=== PATIENT | female | born 2005 | race Caucasian/White ===

== ENCOUNTER 2024-12-17 04:23 | Observation (INO) | payer BC, SELFPAY ==
[2024-12-16 20:09] VITALS: BP 127/81
[2024-12-16 20:55] LABS: COVID-19 Antigen Negative (Negative)
[2024-12-16 21:03] LABS: Hematocrit 42.0 % (37.0-47.0); Hemoglobin 14.5 g/dL (12.0-16.0); Mean Corp Hgb Conc. 34.5 g/dL (33.0-37.0); Mean Corpuscular Volume 88.2 fL (81.0-99.0); Nucleated Red Blood Cells % 0 %; Platelet Count 261 10^3/uL (130-400); Red Cell Dist. Width 12.4 % (11.5-14.5)
[2024-12-16 21:15] LABS: HCG, Serum Qualitative Screen Negative
[2024-12-16 21:21] LABS: ALT (SGPT) 14 U/L (0-35); AST (SGOT) 17 U/L (14-36); Albumin 5.3 g/dl (3.5-5.0); Alkaline Phosphatase 58 U/L (38-126); Blood Urea Nitrogen 12 mg/dl (7-17); Calcium 10.2 mg/dl (8.4-10.2); Carbon Dioxide 28 mmol/L (22-30); Chloride 99 mmol/L (98-107); Estimated Creatinine Clearance 104 ml/min; Glucose 97 mg/dl (70-99); Potassium 4.3 mmol/L (3.5-5.1); Sodium 135 mmol/L (135-145); Total Protein 8.3 g/dl (6.3-8.2); eGFR > 60.00
[2024-12-16 21:30] VITALS: BP 122/76
[2024-12-16 22:00] VITALS: BP 122/83
--- NOTE | 2024-12-16 23:05 | ED.GENMED ---
History of Present Illness
General
Chief Complaint: Fever
Source: patient and family
Time Seen by Provider: 12/16/24 22:45
History of Present Illness
History of Present Illness:
This patient is a 19-year-old female who states she finished her period on and then got concerned about so took a Plan B on Friday evening. She was asymptomatic on Friday and Friday but on Friday she developed vaginal bleeding
associated with episodes of lightheadedness and anorexia. On Friday she noted she felt fatigued and more lightheaded. Yesterday, the bleeding was still present and she just felt 'off' associated with a mild headache. This morning, she notes that
the bleeding has decreased. However, she describes a sore throat, headache, subjective fevers, chills, body aches, and fatigue. She denies abdominal pain, pelvic pain, vaginal pain, dysuria, urgency, frequency, flank pain, chest pain, shortness of
breath, cough, sore rhinorrhea, rash, or other complaints.
Past History
Past History
ED Past Medical History: None
ED Past Surgical History: None
Social History
Tobacco: Non-smoker
Alcohol: Occasional
Drug: None
Living: with family
Employment: Employed
Phy Exam
Physical Exam
Physical Exam:
GENERAL: Alert , in no apparent distress
EYE: pupils equal and reactive, no photophobia, EOMI
NECK: Supple, no significant adenopathy.
ENT: o/p clr, mmm, voice clear, no trismus, no drool, uvula midline, no exudate.
CARDIAC: Regular rate and rhythm .
LUNGS: Clear breath sounds bilaterally, no acute respiratory distress, no wheezes/rales/rhonchi
ABDOMEN: Soft, without focal tenderness, no r/g, no cvat
NEUROLOGICAL: Alert and oriented, no focal neuro deficits
SKIN: Warm and dry, skin intact.
MUSCULOSKELETAL: No edema, well perfused.
PSYCH: Normal and appropriate interaction.
Course
Orders/Labs/Results
Orders:
Orders
12/16/24 20:17
Test Result ONCE
12/16/24 20:20
COVID-19 Antigen Urgent
Source: Nasal Swab
Influenza A+B Rapid Molecular Urgent
ALONDRA Source: Nasal Swab
Specimen Description:
12/16/24 20:46
Complete Blood Count/With Diff Urgent
Comprehensive Metabolic Panel Urgent
HCG, Serum Qualitative Screen Urgent
Comment: Notify provider if positive test present
12/16/24 23:03
Urinalysis Reflex To Culture Urgent
Date Specimen was Collected: 12/17/24
Time Specimen was Collected: 00:30
0.9% Sodium Chloride 1000 ml [Nss] 1,000 ml IV BOLUS
12/16/24 23:13
Lactic Acid Urgent
Blood Culture Q30M
ALONDRA Source: Blood/Venous
Specimen Description:
Blood Culture Q30M
ALONDRA Source: Blood/Venous
Specimen Description:
12/17/24 00:31
Urine Microscopic Reflex Cult Urgent
Urine Culture Urgent
ALONDRA Source: U
Specimen Description:
Date Specimen was Collected: 12/17/24
Time Specimen was Collected: 00:30
12/17/24 00:45
Lyme Progressive Urgent
12/17/24 00:50
CR Chest - 2 Views Urgent
Comment:
Reason For Exam: fever
12/17/24 01:16
Acetaminophen [Tylenol] 1,000 mg PO NOW STA
Abnormal Lab Results
12/16/24 12/16/24 12/17/24
20:46 23:13 00:31
WBC 22.1 H 10^3/uL
(4.8-10.8)
Abs Immat Gran (auto) 0.1 H 10^3/uL
(0-0.05)
Absolute Neuts (auto) 18.7 H 10^3/uL
(1.4-6.5)
Absolute Monos (auto) 1.4 H 10^3/uL
(0.1-0.6)
Neutrophils % 84.5 H %
(42.2-75.2)
Lymphocytes % 8.4 L %
(20.5-51.1)
Lactic Acid 0.6 L mmol/L
(0.7-2.0)
Total Bilirubin 1.6 H mg/dl
(0.2-1.3)
Total Protein 8.3 H g/dl
(6.3-8.2)
Albumin 5.3 H g/dl
(3.5-5.0)
Ur Occult Blood Reflex 4+ A
(Negative)
Leukocyte Esterase Rfl 1+ A
(Negative)
Urine Albumin (Reflex) 1+ A
(Neg - Trace)
12/16/24 20:46
12/16/24 20:46
Vital Signs
Initial and Last Documented VS:
Initial Vital Signs
Temp Pulse Resp BP Pulse Ox
98.7 F 125 22 127/81 99
12/16/24 20:09 12/16/24 20:09 12/16/24 20:09 12/16/24 20:09 12/16/24 20:09
Last Documented Vital Signs
Temp Pulse Resp BP Pulse Ox
98.7 F 103 25 122/83 98
12/16/24 20:09 12/17/24 01:00 12/17/24 01:00 12/16/24 22:00 12/16/24 23:07
*Pulse Oximetry
SaO2: 98
Oxygen Mode of Delivery: Room air
Update Note
Update Note:
Patient presents to the Emergency Department with ___fatigue, intermittent fever, sore throat, dizziness, vaginal bleeding, etc.
Number and Complexity of Problems Addressed at the Encounter
� Chronic conditions affecting care:
� Acute Exacerbation and/or Progression of Chronic Illness:
� Differential Diagnosis includes: But not limited to anemia, COVID, flu, nonspecific viral illness, meningitis, etc. etc.
Amount and/or Complexity of Data to be Reviewed and Analyzed
� I performed an independent evaluation of and my interpretation is:
EKG:
CT:
Xrays:cxr nad
Laboratory Studies: Lactic acid not elevated, white blood cell count elevated at 22,000 otherwise labs generally unremarkable, UA unremarkable
Other:
� Review of other/old records reveals:
� Clinical information was obtained by an independent historian: Mother and sister who are at bedside
� Prescriptions/Medications Considered but not given:
� Further testing considered but not performed:
Risk of Complications and/or Morbidity or Mortality of Patient Management
� Social determinants of health affecting care:
� Discussion with other providers (PCP, Hospitalists, Consultants, etc):
� Escalation of care including admission/observation vs risk of discharge considered: Highly doubt meningitis/encephalitis given lack of photophobia, nuchal rigidity, rash, Kernig Brudzinski, or other suspicious findings.
1:08 AM several reassessments here, patient is received IV fluids and has been sleeping on and off. Of note, the sore throat that she describes is minimal, and is not limiting her ability to eat or drink, no change in voice, no drool, etc. Normal
posterior pharyngeal exam. Nods yes and no easily. Concern regarding patient's persistent yet mild tachycardia and markedly elevated white blood cell count, no specific infection noted on exam here, chest x-ray pending, blood culture sent.
Recommend observation overnight, continued IV fluids, and reassessment. Discussed with patient and mother both agreeable to plan. Dr. Brower made aware
ED Attending Note
-
Portions of this chart may have been created with voice recognition software.� Occasional wrong word or��sound alike� substitutions may have occurred due to the inherent limitations of voice recognition software.
Discharge Plan
Departure
Patient Disposition: Admit
Date of Disposition: 12/17/24
Time of Disposition: 01:09
Presentation/result/management discussed w/ accepting MD/DO: Hospitalist
Discharge Problem:
Fever
Prescriptions:
No Action
No Current Medications
Referrals:
UNKNOWN - PT DOES,NOT KNOW [Family Provider]
Interventions
Interventions:
*Risk Screen - Suicide Last Done: 12/16/24 20:09
ED- Neurological Assessment Last Done: 12/16/24 22:37
ED-Skin Assessment Last Done: 12/16/24 22:37
Discharge Date and Time
Print Language: CUBAN
[2024-12-16] MEDS: NSS 1000 IV (23:15)
[2024-12-17 00:46] LABS: Urine Character Clear (Clear)
[2024-12-17 00:54] LABS: Urine Squamous Cell 0-2 /LPF (Few)
[2024-12-17 00:55] LABS: Urine Red Blood Cell 0-2 /HPF (0-2); Urine White Cell 0-2 /HPF (0-5)
[2024-12-17] MEDS: TYLENOL 1000 MG PO (01:37)
--- NOTE | 2024-12-17 03:48 | HPS.HSE ---
Family Physician
-
Family Physician: NOT KNOW UNKNOWN - PT DOES
Chief Complaint
-
Fever
History of Present Illness
This is a 19-year-old female with no known significant past medical history presenting to the emergency department with a fever.
According to mother, patient took emergency contraceptive (Levonorgestrel) about 2 weeks ago. Over the last 2 days she then developed constellation of symptoms including headache, sore throat, mild rhinorrhea, generalized aches, myalgias weakness
and a persistent fever with diaphoresis. She denied having any chest pain, shortness of breath, cough nausea vomiting or diarrhea. She denies any rash. She denies any joint swelling or erythema. Patient denies any exposures. She denies any
urinary symptoms. Patient reports spending a lot of time in the [place] with her dog recently within the last few weeks but has not noticed any takes on. She denies any new medications.
In the emergency department she was febrile to 101.2, blood pressure 120/80 with a pulse of 83 and satting 95% on room air. Chest x-ray was completely clear. UA was negative. COVID and flu test were negative. She has a Lyme panel pending. CBC
was notable for a white count of 22 without immature cells bands or blast. Electrolytes BUN/creatinine were normal. LFT were normal except for a slight bilirubin elevation to 1.6
Medical History
Past Medical History
Past Medical History: Reports None
Past Surgical History: Reports None
Social History
Tobacco: Non-smoker
Alcohol: None
Drug: None
Personal: Single
Family History
Family History: Not pertinent
Allergies / Home Medications
Allergies reflects when Allergies were last updated in [facility].
Home Medications with original date entered in [employer]
Allergy/Medication List:
Allergies
Allergy/AdvReac Type Severity Reaction Status Date / Time
No Known Allergies Allergy Verified 10/08/16 10:33
Home Medications
No Current Medications
Review of Systems
-
Constitutional: Reports Fever
EENT: Reports No Symptoms
Respiratory: Reports No Symptoms
Cardiac: Reports No Symptoms
Abdomen/GI: Reports No Symptoms
: Reports No Symptoms
Musculoskeletal: Reports No Symptoms
Skin: Reports No Symptoms
Neurological: Reports No Symptoms
Endocrine: Reports No Symptoms
Hematologic/Lymphatic: Reports No Symptoms
Psych: Reports No Symptoms
Physical Exam
Vital Signs
Vital Signs
Temp Pulse Resp BP Pulse Ox
101.2 F H 103 25 122/83 98
12/17/24 01:00 12/17/24 01:00 12/17/24 01:00 12/16/24 22:00 12/16/24 23:07
Physical Exam
General: Well Developed, Well Nourished and No Apparent Distress
HEENT: NormoCephalic, Moist mucous membranes and Atraumatic
Respiratory: Clear
Cardiac: S1/S2 and Regular Rhythm; No Murmur or Rub
GI: Soft, Non Tender, Non Distended and Normal Bowel Sounds; No Organomegaly
Rectal: Deferred by Provider
Musculoskeletal: No Clubbing, No Cyanosis and No Edema
Skin: No Rash
Neuro: Nonfocal/grossly intact
Laboratory Results
-
12/16/24 20:46
12/16/24 20:46
Laboratory Results
Lactic Acid 0.6 mmol/L (0.7-2.0) L 12/16/24 23:13
Total Bilirubin 1.6 mg/dl (0.2-1.3) H 12/16/24 20:46
AST 17 U/L (14-36) 12/16/24 20:46
ALT 14 U/L (0-35) 12/16/24 20:46
Alkaline Phosphatase 58 U/L (38-126) 12/16/24 20:46
Data Reviewed
-
Diagnostic Radiology: Image Personally Visualized and interpreted
Lab Data: Labs Reviewed by me
Old Records: Reviewed
Impression/Plan
-
IMPRESSION:
19 generally healthy female presenting to the Emergency Department with 2 days of fever, sore throat and generalized aches pains and headaches consistent with a viral prodrome or tickborne illness versus atypical infection. She has no known risk
factors except for spending time outdoors. She has no recent travel. She does have a friend with URI symptoms recently. Initial workup in the emergency department notable for leukocytosis but otherwise unremarkable. She is still spiking fevers
but has been hemodynamically stable
PLAN:
Fever of unknown source
- Admit to [facility] observation
- Parasite workup
- Check ESR/CRP
- Check infectious mononucleosis
- Blood cultures sent and pending
- Will hold off on antibiotics for now
- Infectious disease consultation
DVT prophylaxis�SCDs
CODE STATUS�full code
[2024-12-17 06:17] VITALS: BP 95/76
[2024-12-17 07:09] LABS: C-Reactive Protein 62.80 mg/L (0.0-10.00)
[2024-12-17 07:13] LABS: Hematocrit 35.9 % (37.0-47.0); Hemoglobin 12.2 g/dL (12.0-16.0); Mean Corp Hgb Conc. 34.0 g/dL (33.0-37.0); Mean Corpuscular Volume 87.8 fL (81.0-99.0); Platelet Count 205 10^3/uL (130-400); Red Cell Dist. Width 12.5 % (11.5-14.5)
[2024-12-17 07:17] VITALS: BP 105/56
[2024-12-17 07:44] LABS: Ferritin 49.1 ng/ml (6.24-137)
--- NOTE | 2024-12-17 08:16 | W.PN.HOSP.TC ---
Today's Communication/Plan
-
see PN
Assessment / Plan
Assessment / Plan
19yo F with mno PMHX came with 3 days of malaise and headache, presisted for whole 3 days. Also found fevers. Her headache resolved though. Also some congestion and sore throat. She took plan B 1 week ago 1 day after completion of her usual period
and developed bleeding right before the symptoms onset, so was concerned that symptoms were due to plan B medication. No urinary or abdominal smprtoms reported
A/P:
#Fever, malaise most likely 2/2 viral upper respiratory infection
COVID-19, influenza PCR neg
UA with positive leukocyte esterase, however patient with pronounced upper respiratory symptoms and without urinary symptoms - most likely asymptomatic bacteriuria
Leukocytosis resolving off Abx
Parasite screen, monoscreen, Lyme pending
GAS screen neg, Beta hem strep pending
CHest XR reading pending, but no overt signs of pneumonia
ID consult
#Vaginal bleeding
after plan B
[employer] OPERATOR opinion
#Bilirubinemia, mild
no abd pain
check direct bili, LDH and retics
DVT ppx SCDs
Full code
I have spent at least 51min reviewing chart, test results, communication with consultants, family and providing direct patient care
Anticipated Discharge: Within 24 hours
Subjective/Interval History
-
Date of Service: December 17, 2024
Objective Data
-
Labs:
Laboratory Results
12/16/24 12/17/24
20:46 06:09
WBC 22.1 H 14.0 H
Hgb 14.5 12.2
Hct 42.0 35.9 L
Plt Count 261 205 D
Sodium 135
Potassium 4.3
Chloride 99
Carbon Dioxide 28
BUN 12
Creatinine 0.9
Glucose 97
Calcium 10.2
Total Bilirubin 1.6 H
AST 17
ALT 14
Alkaline Phosphatase 58
Vital Signs:
Vital Signs
Temp Pulse Resp BP Pulse Ox
98.6 F 69 17 105/56 98
12/17/24 07:17 12/17/24 07:17 12/17/24 07:17 12/17/24 07:17 12/17/24 07:17
Review of Systems
-
History Source: Patient
All other systems: Reviewed and negative
Constitutional: Reports Fever
EENT: Reports Sore Throat
Respiratory: Denies Cough
Physical Exam
-
General: No Apparent Distress and Comfortable
HEENT: Normocephalic and Pharyngeal Erythema
Respiratory: Clear to Auscultation; Negative Wheezes
Cardiac: Regular Rhythm
GI: Soft, Nontender and Nondistended
Neuro: Awake, Alert, Oriented and AO x 3
Psych: Calm
[2024-12-17 08:35] LABS: Reticulocyte Count 1.6 % (0.4-2.8)
[2024-12-17 09:12] LABS: LDH 158 U/L (120-246)
[2024-12-17 10:00] LABS: INR 1.20; PT 15.5 Sec (11.4-14.6)
[2024-12-17 10:01] LABS: APTT 30.8 Sec (23.4-35.0)
--- NOTE | 2024-12-17 14:14 | CON.ID ---
Consultation
-
Date/Time Consultation Requested: 12/17/2024 04:40
Date/Time Consultation Performed: 12/17/2024 1415
Requesting Provider: Dr. Schumacher
Performing Provider: Dr. Feliciano
Reason for Consultation: Fever
Chief Complaint / Past History
History of Present Illness
Padmini Reese is a 19-year-old female without significant past medical history being evaluated at the request of Dr. Schumacher regarding fever. History is obtained from chart review, along with patient interview.
The patient reports an episode of unprotected sexual intercourse approximately 7 to 10 days ago, and she took 'Plan B' 1 week ago. Over the next 2 days she felt well, but 5 days ago she began to have vaginal bleeding and began to feel lightheaded.
Lightheadedness and fatigue persisted over the next several days, along with the development of poor appetite. Yesterday she developed a sore throat and felt like she was going to pass out. She ultimately presented to the hospital for further
evaluation. She notes prior to coming to the hospital she had a fever 102, and here in the ER she developed a temperature to 101.2 degrees. She admits to headaches over the past several days. She denies any chest pain, shortness of breath, cough
or congestion. She denies any abdominal pain, nausea or vomiting. She notes decreased vaginal bleeding at this point in time. She denies any myalgias but does admit to some generalized achiness.
She denies any recent travel. There is 1 dog at home. She may have seen ticks on the dog, but denies seeing any ticks on her.
Past History
Past Medical History: None
Past Surgical History: Orthopedic (Knee surgery)
Allergy History:
No Known Allergies Allergy (Verified 10/08/16 10:33)
Medications Reviewed: Yes
Current Antibiotics:
None
Social History
Tobacco: Non-Smoker
Alcohol: Occasional
Drug: None
Personal: Single
Living: With Family
Employment: Employed
Family History
Family History: Not Pertinent
Review of Systems
Vital Signs
Temp Pulse Resp BP Pulse Ox
98.1 F 69 17 105/56 98
12/17/24 11:06 12/17/24 07:17 12/17/24 07:17 12/17/24 07:17 12/17/24 07:17
Physical Exam
Physical Exam
Constitutional: No Acute Distress, Comfortable and Non-toxic
Eyes: No Conjunctival Hemorrhage and Sclera Anicteric
Pharynx: Benign and Other (No tonsillar exudate); Negative Erythema
Oral: No Thrush and No Ulcers
Lymph Nodes: Negative Lymphadenopathy
Cardiovascular: Regular Rate and S1/S2; Negative S3/S4
Pulmonary: Clear; Negative Wheezes, Rales or Rhonchi
Gastrointestinal: Soft, Non Tender, Non Distended and Normal Bowel Sounds
Genito-Urinary: Negative Morrison
Extremities: Negative Edema, Cyanosis or Erythema
Skin: Warm and Dry; Negative Rash or Jaundice
Neurological: Awake, Alert and Oriented
Psychological: Calm
.
Lab / Diagnostic Study Results
12/17/24 06:09
12/16/24 20:46
Abs Immat Gran (auto) 0.1 10^3/uL (0-0.05) H 12/16/24 20:46
Absolute Neuts (auto) 18.7 10^3/uL (1.4-6.5) H 12/16/24 20:46
Absolute Lymphs (auto) 1.9 10^3/uL (1.2-3.4) 12/16/24 20:46
Absolute Monos (auto) 1.4 10^3/uL (0.1-0.6) H 12/16/24 20:46
Absolute Basos (auto) 0.1 10^3/uL (0-0.2) 12/16/24 20:46
Immature Gran % 0.5 % (0-0.5) 12/16/24 20:46
Neutrophils % 84.5 % (42.2-75.2) H 12/16/24 20:46
Lymphocytes % 8.4 % (20.5-51.1) L 12/16/24 20:46
Monocytes % 6.3 % (1.7-9.3) 12/16/24 20:46
Eosinophils % 0.0 % (0-6) 12/16/24 20:46
Basophils % 0.3 % (0-2) 12/16/24 20:46
ESR 10 mm/hour (0-20) 12/17/24 06:09
PT 15.5 Sec (11.4-14.6) H 12/17/24 09:38
INR 1.20 12/17/24 09:38
Lactic Acid 0.6 mmol/L (0.7-2.0) L 12/16/24 23:13
C-Reactive Protein 62.80 mg/L (0.0-10.00) H 12/17/24 06:09
Ur Squamous Epith Cells 0-2 /LPF (Few) 12/17/24 00:31
Microbiology Results
Micro:
12/17/24 06:09 Blood Parasites Smear - Final
Blood/Venous
12/17/24 06:24 Streptococcus Screen (ALONDRA) - Pending
Throat/Pharynx Streptococcus Rapid Screen - Final
Rapid Strep Screen (Group A) Negative
12/16/24 23:13 Blood Culture - Pending
Blood/Venous
12/16/24 23:13 Blood Culture - Pending
Blood/Venous
12/17/24 00:31 Urine Culture - Pending
Urine
12/16/24 20:20 Influenza Types A & B (LINDA) - Final
Nasal Swab Negative for Influenza A & B, NAAT
Negative results must be combined with clinical observations
and patient history.
Nucleic Acid Amplification test (NAAT)performed on the
[employer] platform.
Imaging:
12/17/2024 CXR (2 view): no focal airspace disease. No pleural effusion or pneumothorax. No evidence of pneumonia. Please see full dictation for additional detail.
Assessment / Plan
Fever
Pharyngitis
Recent administration of Plan B
Recent history of unprotected sexual intercourse
Recommendations:
Etiology of fever is unclear. May be secondary to intercurrent viral infection. Tickborne illness is also a possibility.
Given history of unprotected sexual intercourse, would check HIV antibody. Would also check urinary GC and chlamydia PCR.
Improvement in white count without antibiotics is encouraging.
I see no reason to initiate antibiotics at this point, but patient should follow her temperature curve, and if fevers persist, further workup may be necessary.
Would follow-up with PCP and repeat CBC early next week.
Care Review
Plan reviewed with: Physician (Hospitalist)
--- NOTE | 2024-12-17 14:19 | W.DCSUMMARY ---
Discharge Summary
Discharge Data
Date of Admission: 12/17/24
Date of Discharge: 12/17/24
-
Pending Results: Yes
Additional Pending Results:
Bood culture
Urine culture
Lyme disease
Hospital Course
19yo F with mno PMHX came with 3 days of malaise and headache, presisted for whole 3 days. Also found fevers. Her headache resolved though. Also some congestion and sore throat. She took plan B 1 week ago 1 day after completion of her usual period
and developed bleeding right before the symptoms onset, so was concerned that symptoms were due to plan B medication. No urinary or abdominal smprtoms reported. ID evaluated patient and recommended HIV test, but patient declined. DIscussed post plan
B bleeding with SOFTWARE TECHNICAL LEAD - since bleeding improving and Hgb stable - no need for urgent consult. If bleeding to continue - outpatient SOFTWARE TECHNICAL LEAD will be indicated. Intruction sto be provided upon d/c
Medcially stable for d/c
I have spent at least 51min reviewing chart, test results, communication with consultants, family and providing direct patient care
Patient was managed for:
#Fever, malaise most likely 2/2 viral upper respiratory infection
#Vaginal bleeding
#Bilirubinemia, mild, indirect, most likely Gilebrt with normal LDH and retics
Discharge Plan
-
Patient Disposition: Home (Routine Discharge)
Discharge Diagnosis/Procedures: Fever
Diet: Regular
Activity Restrictions/Additional Instructions:
If vaginal bleeding will continue - follow up with SOFTWARE TECHNICAL LEAD
Referrals:
UNKNOWN - PT DOES,NOT KNOW [Family Provider]
Prescriptions:
Continued
No Current Medications
Discharge Orders:
Discharge Patient (As Directed); Ordered 12/17/24
Ordered By: Hugo Houser
Discharge Date and Time
Print Language: FRISIAN
--- NOTE | 2024-12-17 15:20 | CM ---
Patient discharged to home by nursing; no needs
--- NOTE | 2024-12-19 12:37 | W.PN.UPDATE ---
Update Note
Progress Note Update
50K strep [place] CFU on Ucx - with absent urinary symptoms - no indication to treat
[2024-12-20 14:50] LABS: Lyme Antibody Screen, EIA Negative (Negative)
== END 2024-12-17 14:41 | disposition home or self-care (01) ==
LOC: ED 04:23
PROVIDERS: Emergency Medicine; ADMITTING PHYSICIAN Internal Medicine; ATTENDING PHYSICIAN Internal Medicine; EMERGENCY PHYSICIAN Emergency Medicine; OTHER PHYSICIAN Internal Medicine Infectious Disease
DX: R50.9 Fever, unspecified (principal); N93.9 Abnormal uterine and vaginal bleeding, unspecified; R17 Unspecified jaundice; Z11.52 Encounter for screening for COVID-19
CPT/HCPCS: 71046; 80053; 81003; 81015; 82248; 82728; 83605; 83615; 84703; 85025; 85027; 85045; 85610; 85652; 85730; 86140; 86308; 86618; 87015; 87040; 87070; 87077; 87086; 87147; 87207; 87468; 87484; 87491; 87502; 87591; 87798; 87811; 87880; 96360; 99284; G0378